=== PATIENT | female | born 1950 | race Caucasian/White ===

== ENCOUNTER 2016-06-05 13:24 | Outpatient (RCR) | payer BC ==
[~2016-06-05 13:24] MED LIST: ASP81TEC PO; FURO20TA4 PO; GBPN300C PO; INSU100I14 SQ; LEVE1U SQ; LVT.1T PO; METO-272 PO; NIFE90TA4 PO; OMEP20TA2 PO; ONDA8TAB13 PO; TRAM50TA2 PO; TRM50T PO; [UNRECOGNIZED DRUG - OTHER]
--- OUTSIDE RECORDS SUMMARY | 2016-06-05 13:27 | XMS REPORT | Continuity of Care Document ---
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 Medications Medication Dose Route Sig Days/Qty Instructions Order Date Discontinued Date Status Metoprolol Succinate 100 Mg PO DAILY 05/14/11 Active Nifedipine 60 Mg PO DAILY 05/14/11 Active Levothyroxine Sodium (Levothroid) 100 Mg PO DAILY 05/14/11 Active Aspirin 81 Mg PO DAILY 05/14/11 Active Omeprazole 20 Mg PO DAILY 06/19/11 04/23/13 Discontinued Ondansetron 8 Mg PO EVERY 8HRS PRN 06/19/11 04/23/13 Discontinued [Detamethason] DIRECTED -TAKES BEFORE CHEMO- 06/19/11 08/14/11 Discontinued Insulin Detemir 24 Units SQ BEDTIME 06/19/11 04/23/13 Discontinued Gabapentin 300 Mg PO BEDTIME 08/14/11 04/23/13 Discontinued Furosemide (Lasix) 1 Each PO DAILY PRN 08/14/11 04/23/13 Discontinued Insulin Aspart 11 Units SQ WITH MEALS 08/14/11 04/23/13 Discontinued Tramadol Hcl 50 - 100 Mg PO EVERY 4HRS PRN 30 Qty 08/23/11 04/23/13 Discontinued Social History Social History Problem Response Recorded Date/Time Recent Foreign Travel No 03/01/2014 2:07pm Hospital Discharge Instructions No hospital discharge instructions. Plan of Care No plan of care. Functional Status No functional status results. Allergies, Adverse Reactions, Alerts Allergen Type Severity Reaction Status Last Updated Shellfish Allergy SWELLING, RASH Active 05/14/11 iodine ([id number]) Allergy SWELLING, SOB Active 05/14/11 Codeine Allergy SEIZURE Active 05/14/11 meperidine Allergy HALLUCINATION Active 04/23/13 [place] ([id number]) Allergy RASH, SWELLING Active 05/14/11 Immunizations Name Given Type Date of Influenza Vaccine 02/03/13 Historical Vital Signs No known vital signs results. Results Test Source Date Result Interp. Ref. Range Comments Activated Partial Thromboplast Time June 20, 2011 1:25am 147 SEC PH 24-35 RESULTS CALLED TO SLOVEN[place] AT 0143. RESULTS READ BACK:YES. Alanine Aminotransferase (ALT/SGPT) September 17, 2013 11:23am 27 U/L L 30-65 Albumin September 17, 2013 11:23am 3.9 G/DL N 3.4-5.0 Alkaline Phosphatase September 17, 2013 11:23am 109 U/L N 50-136 Faustino Test June 19, 2011 2:45pm YES-POS - Puncture site: RIGHT RADIALAllen's Test: POSITIVE Temperature: 97.8 Room Air: Y Liters of O2: 0 Ventilator: N Arterial Blood Base Excess June 19, 2011 2:45pm -1.1 MMOL/L N -2.5- 2.5 Puncture site: RIGHT RADIALAllen's Test: POSITIVE Temperature: 97.8 Room Air: Y Liters of O2: 0 Ventilator: N Arterial Blood HCO3 June 19, 2011 2:45pm 22 MMOL/L L 23-27 Puncture site: RIGHT RADIALAllen's Test: POSITIVE Temperature: 97.8 Room Air: Y Liters of O2: 0 Ventilator: N Arterial Blood Oxygen Saturation June 19, 2011 2:45pm 98 % N 94-100 Puncture site: RIGHT RADIALAllen's Test: POSITIVE Temperature: 97.8 Room Air: Y Liters of O2: 0 Ventilator: N Arterial Blood Partial Pressure CO2 June 19, 2011 2:45pm 32 MMHG L 35-45 Puncture site: RIGHT RADIALAllen's Test: POSITIVE Temperature: 97.8 Room Air: Y Liters of O2: 0 Ventilator: N Arterial Blood Partial Pressure O2 June 19, 2011 2:45pm 104 MMHG H 79-93 Puncture site: RIGHT RADIALAllen's Test: POSITIVE Temperature: 97.8 Room Air: Y Liters of O2: 0 Ventilator: N Arterial Blood Total CO2 June 19, 2011 2:45pm 23.3 MMOL/L N 21.0- 31.0 Puncture site: RIGHT RADIALAllen's Test: POSITIVE Temperature: 97.8 Room Air: Y Liters of O2: 0 Ventilator: N Arterial Blood pH June 19, 2011 2:45pm 7.46 H 7.37-7.43 Puncture site: RIGHT RADIALAllen's Test: POSITIVE Temperature: 97.8 Room Air: Y Liters of O2: 0 Ventilator: N Aspartate Amino Transf (AST/SGOT) September 17, 2013 11:23am 13 U/L L 15-37 BUN/Creatinine Ratio September 17, 2013 11:23am 13 - Basophils # (Auto) September 17, 2013 11:23am 0.1 10^3/uL N 0.0-0.1 Basophils (%) (Auto) September 17, 2013 11:23am 1 % N 0-10 Blood Gas Inspired Oxygen June 19, 2011 2:45pm 0 - Puncture site : RIGHT RADIALAllen's Test: POSITIVE Temperature: 97.8 Room Air: Y Liters of O2: 0 Ventilator: N Blood Gas Patient Temperature June 19, 2011 2:45pm 97.8 - Puncture site: RIGHT RADIALAllen's Test: POSITIVE Temperature: 97.8 Room Air: Y Liters of O2: 0 Ventilator: N Blood Gas Puncture Site June 19, 2011 2:45pm RT RADIAL - Puncture site: RIGHT RADIALAllen's Test: POSITIVE Temperature: 97.8 Room Air: Y Liters of O2: 0 Ventilator: N Blood Gas Ventilator Setting June 19, 2011 2:45pm NO - Puncture site: RIGHT RADIALAllen's Test: POSITIVE Temperature: 97.8 Room Air: Y Liters of O2: 0 Ventilator: N Blood Urea Nitrogen September 17, 2013 11:23am 12 MG/DL N 7-18 CA 27.29 May 29, 2011 11:40am 31.6 U/ML - Calcium Level September 17, 2013 11:23am 8.9 MG/DL N 8.5-10.1 Carbon Dioxide Level September 17, 2013 11:23am 27 MMOL/L N 21-32 Chloride Level September 17, 2013 11:23am 103 MMOL/L N 101-110 Creatinine September 17, 2013 11:23am 0.9 MG/DL N 0.6-1.3 D-Dimer June 19, 2011 10:27am 0.76 UG/ML H 0.00-0.49 Comments to Rn Gastroenterology: USE BLOOD IN LAB IF ABLE Eosinophils # (Auto) September 17, 2013 11:23am 0.7 10^3/uL H 0.0-0.3 Eosinophils (%) (Auto) September 17, 2013 11:23am 9 % N 0-10 Erythrocyte Sedimentation Rate June 19, 2011 10:27am 17 MM/HR N 0- 30 Comments to Rn Gastroenterology: PT HAS A PORT Glucose Level September 17, 2013 11:23am 176 MG/DL H 74-106 Hematocrit September 17, 2013 11:23am 37 % N 35-52 Hemoglobin September 17, 2013 11:23am 13.1 G/DL N 11.5-16.0 Hemoglobin A1c April 01, 2012 2:50pm 7.9 % H 4.5-6.2 Lymphocytes # (Auto) September 17, 2013 11:23am 1.7 X 10^3 N 1.0-4.0 Lymphocytes (%) (Auto) September 17, 2013 11:23am 23 % N 12-44 Mean Corpuscular Hemoglobin September 17, 2013 11:23am 28 PG N 25-34 Mean Corpuscular Hemoglobin Concent September 17, 2013 11:23am 35 G/DL N 32- 36 Mean Corpuscular Volume September 17, 2013 11:23am 80 FL N 80-99 Mean Platelet Volume September 17, 2013 11:23am 9.6 FL N 7.4-10.4 Monocytes # (Auto) September 17, 2013 11:23am 0.6 X 10^3 N 0.0-1.0 Monocytes (%) (Auto) September 17, 2013 11:23am 8 % N 0-12 Neutrophils # (Auto) September 17, 2013 11:23am 4.6 X 10^3 N 1.8-7.8 Neutrophils (%) (Auto) September 17, 2013 11:23am 60 % N 42-75 Platelet Count September 17, 2013 11:23am 354 10^3/uL N 130-400 Potassium Level September 17, 2013 11:23am 4.6 MMOL/L N 3.6-5.0 Prothromb Time International Ratio June 19, 2011 10:27am 0.8 N 0.8- 1.4 INTERPRETIVE DATASUGGESTED THERAPEUTIC RANGE FOR INR'S : VENOUS THROMBOSIS, PULMONARY EMBOLISM, OR PREVENTION OF SYSTEMIC EMBOLISM (EG. IN ATRIAL FIBRILLATION): 2.0 - 3.0 MECHANICAL PROSTHETIC HEART VALVES: 2.5 - 3.5* *NOTE: INR'S UP TO 4.5 MAY BE NECESSARY IN SELECTED GROUPS OF HIGH RISK PATIENTS. [employer] [place] COL[employer] OF CHEST PHYSICIANS CONSENSUS CONFERENCE ON ANTITHROMBOTIC THERAPY (2000). Prothrombin Time June 19, 2011 10:27am 11.8 SEC L 12.2-14.7 Comments to Rn Gastroenterology: PT HAS A PORT Red Blood Count September 17, 2013 11:23am 4.65 10^6/uL N 4.35-5.85 Red Cell Distribution Width September 17, 2013 11:23am 13.4 % N 10.0-14.5 Sodium Level September 17, 2013 11:23am 139 MMOL/L N 135-145 Thyroid Stimulating Hormone (TSH) April 01, 2012 2:50pm 0.45 UIU/ML N 0.34-5.60 PRINT TO CCRPT5 Total Bilirubin September 17, 2013 11:23am 0.5 MG/DL N 0.0-1.0 Total Protein September 17, 2013 11:23am 7.9 G/DL N 6.4-8.2 Troponin I June 19, 2011 10:10pm < 0.10 MG/ML 0.00-0.10 White Blood Count September 17, 2013 11:23am 7.6 10^3/uL N 4.3-11.0 Glucometer April 30, 2013 7:50am 229 MG/DL H 70-110 Lab Scanned Report June 19, 2011 9:20am LAB Reports [id number] - Estimat Glomerular Filtration Rate September 17, 2013 11:23am > 60 - GFR INTERPRETIVE DATA UNITS FOR ESTIMATED GFR (eGFR): mL/min/1.73 M2 REFERENCE RANGE FOR ESTIMATED GFR (eGFR) eGFR NORMAL eGFR >60 MODERATELY DECREASED eGFR 30-59 SEVERLY DECREASED eGFR 15-29 KIDNEY FAILURE <15 (OR DIALYSIS) Creatine Kinase June 19, 2011 10:10pm 27 U/L N 1-159 Cardiac Panel Pathologist Review June 19, 2011 10:27am SEE CARDIAC PATH REV - Comments to Rn Gastroenterology: PT HAS A PORT MRSA Screen Nasal April 23, 2013 2:30pm MRSA not isolated Procedures No known history of procedures. Encounters Encounter Location Date/Time Registered Clinic [facility] 03/02/14 2:40pm Discharged Recurring [facility] 12/22/13 10:47am
[2016-06-05 13:42] LABS: BASOPHILS % (AUTO) 1 % (0-10); EOSINOPHILS # (AUTO) 0.2 10^3/uL (0.0-0.3); EOSINOPHILS % (AUTO) 4 % (0-10); LYMPHOCYTES # (AUTO) 1.9 X 10^3 (1.0-4.0); LYMPHOCYTES % (AUTO) 31 % (12-44); MEAN CORPUSCULAR HEMOGLOBIN 28 PG (25-34); MEAN CORPUSCULAR HGB CONC 35 G/DL (32-36); MEAN CORPUSCULAR VOLUME 81 FL (80-99); MEAN PLATELET VOLUME 9.7 FL (7.4-10.4); MONOCYTES # (AUTO) 0.5 X 10^3 (0.0-1.0); MONOCYTES % (AUTO) 8 % (0-12); NEUTROPHILS # (AUTO) 3.4 X 10^3 (1.8-7.8); NEUTROPHILS % (AUTO) 56 % (42-75); PLATELET COUNT 289 10^3/uL (130-400); RED BLOOD COUNT 4.38 10^6/uL (4.35-5.85); RED CELL DISTRIBUTION WIDTH 13.1 % (10.0-14.5); WHITE BLOOD COUNT 6.1 10^3/uL (4.3-11.0)
[2016-06-05 14:08] LABS: BILIRUBIN,TOTAL 0.5 MG/DL (0.1-1.0); CALCIUM 8.9 MG/DL (8.5-10.1); CREATININE SERUM 1.16 MG/DL (0.60-1.30); POTASSIUM 4.5 MMOL/L (3.6-5.0); TOTAL PROTEIN 6.9 G/DL (6.4-8.2)
== END 2016-09-03 | disposition home or self-care (01) ==
LOC: ONC 13:24
PROVIDERS: ATTEND Internal Medicine Hematology & Oncology
DX: C50.411 Malignant neoplasm of upper-outer quadrant of right female breast (principal); E11.9 Type 2 diabetes mellitus without complications; I10 Essential (primary) hypertension; E03.9 Hypothyroidism, unspecified; Z90.79 Acquired absence of other genital organ(s); Z79.899 Other long term (current) drug therapy; Z17.0 Estrogen receptor positive status [ER+]
CPT/HCPCS: 36415; 80053; 85025

== ENCOUNTER → 2016-06-12 | Outpatient (CLI) | payer BC ==
--- OUTSIDE RECORDS SUMMARY | 2016-06-12 13:55 | XMS REPORT | Continuity of Care Document ---
Author Author [facility] Organization [facility] Address Unknown Phone Unavailable Care Team Providers Care Student Support Advisor Name Role Phone ANG QUIROS PCP Insurance Providers Payer Name Policy Number Subscriber Name Relationship [facility] [id number] Andrew Olguin 18 Self / Same As Patient Advance Directives Directive Response Recorded Date/Time Advance Directives Yes 04/30/13 8:19am Health Care Power of [employer] Press Operator Automatic No 04/30/13 8:19am Organ Donor No 04/30/13 [...] Shellfish Allergy SWELLING, RASH Active 05/14/11 iodine ([id number]) Allergy SWELLING, SOB Active 05/14/11 Codeine Allergy SEIZURE Active 05/14/11 meperidine Allergy HALLUCINATION Active 04/23/13 [place] ([id number]) Allergy RASH, SWELLING Active 05/14/11 Immunizations Name Given Type Date of Influenza Vaccine 02/03/13 Historical Vital Signs No known vital signs results. Results Test Source Date Result Interp. Ref. Range Comments Activated Partial Thromboplast Time June 20, 2011 1:25am 147 SEC PH 24-35 RESULTS CALLED TO [place] AT 0143. RESULTS READ BACK:YES. Alanine Aminotransferase [...] 10:27am 0.76 UG/ML H 0.00-0.49 Comments to Vineyard Supervisor: USE BLOOD IN LAB IF ABLE Eosinophils # (Auto) September 17, 2013 11:23am 0.7 10^3/uL H 0.0-0.3 Eosinophils (%) (Auto) September 17, 2013 11:23am 9 % N 0-10 Erythrocyte Sedimentation Rate June 19, 2011 10:27am 17 MM/HR N 0- 30 Comments to Vineyard Supervisor: PT HAS A PORT Glucose Level September [...] SELECTED GROUPS OF HIGH RISK PATIENTS. [employer] [place] [employer] OF CHEST PHYSICIANS CONSENSUS CONFERENCE ON ANTITHROMBOTIC THERAPY (2000). Prothrombin Time June 19, 2011 10:27am 11.8 SEC L 12.2-14.7 Comments to Vineyard Supervisor: PT HAS A PORT Red Blood Count [...] Report June 19, 2011 9:20am LAB Reports [id number] - Estimat Glomerular Filtration Rate September 17, [...] SEE CARDIAC PATH REV - Comments to Vineyard Supervisor: PT HAS A PORT MRSA Screen Nasal April 23, 2013 2:30pm MRSA not isolated Procedures No known history of procedures. Encounters Encounter Location Date/Time Registered Clinic [facility] 03/02/14 2:40pm Discharged Recurring [facility] 12/22/13 10:47am
== END ==
LOC: FS 13:52
PROVIDERS: ATTEND Internal Medicine Hematology & Oncology
DX: C50.411 Malignant neoplasm of upper-outer quadrant of right female breast (principal); E11.9 Type 2 diabetes mellitus without complications; I10 Essential (primary) hypertension; E03.9 Hypothyroidism, unspecified; Z90.79 Acquired absence of other genital organ(s); Z79.899 Other long term (current) drug therapy; Z17.0 Estrogen receptor positive status [ER+]
CPT/HCPCS: 99213

== ENCOUNTER 2016-09-28 09:26 | Outpatient (RCR) | payer BC ==
[2016-09-28 10:04] LABS: BASOPHILS # (AUTO) 0.1 10^3/uL (0.0-0.1); BASOPHILS % (AUTO) 1 % (0-10); EOSINOPHILS # (AUTO) 0.3 10^3/uL (0.0-0.3); EOSINOPHILS % (AUTO) 5 % (0-10); LYMPHOCYTES # (AUTO) 1.6 X 10^3 (1.0-4.0); LYMPHOCYTES % (AUTO) 26 % (12-44); MEAN CORPUSCULAR HEMOGLOBIN 28 PG (25-34); MEAN CORPUSCULAR HGB CONC 34 G/DL (32-36); MEAN CORPUSCULAR VOLUME 81 FL (80-99); MONOCYTES # (AUTO) 0.5 X 10^3 (0.0-1.0); MONOCYTES % (AUTO) 8 % (0-12); NEUTROPHILS # (AUTO) 3.7 X 10^3 (1.8-7.8); NEUTROPHILS % (AUTO) 60 % (42-75); PLATELET COUNT 301 10^3/uL (130-400); RED BLOOD COUNT 4.85 10^6/uL (4.35-5.85); RED CELL DISTRIBUTION WIDTH 12.7 % (10.0-14.5); WHITE BLOOD COUNT 6.3 10^3/uL (4.3-11.0)
[2016-09-28 10:26] LABS: ALBUMIN 4.2 G/DL (3.2-4.5); BILIRUBIN,TOTAL 0.4 MG/DL (0.1-1.0); CALCIUM 9.7 MG/DL (8.5-10.1); CREATININE SERUM 1.2 MG/DL (0.60-1.30); POTASSIUM 4.4 MMOL/L (3.6-5.0); TOTAL PROTEIN 8.2 G/DL (6.4-8.2)
== END 2016-12-27 | disposition home or self-care (01) ==
LOC: ONC 09:26
PROVIDERS: ATTEND Internal Medicine Hematology & Oncology
DX: C50.411 Malignant neoplasm of upper-outer quadrant of right female breast (principal); E11.9 Type 2 diabetes mellitus without complications; I10 Essential (primary) hypertension; E03.9 Hypothyroidism, unspecified; Z90.79 Acquired absence of other genital organ(s); Z79.899 Other long term (current) drug therapy; Z17.0 Estrogen receptor positive status [ER+]
CPT/HCPCS: 36415; 80053; 85025

== ENCOUNTER → 2016-09-28 | Outpatient (CLI) | payer BC ==
--- NOTE | 2016-09-28 16:18 | Diagnostic Imaging Report ---
EXAMINATION: Bilateral diagnostic mammogram with a Computer Aided Detection (CAD) system. INDICATION: History of right breast cancer. FINDINGS: Again seen are postsurgical changes in the upper aspect of the right breast with scarring and stable mass, compatible with a chronic seroma. The left breast heterogeneously dense parenchyma is not significantly changed with benign-appearing calcifications seen. Allowing for technique and positional differences, no suspicious change is seen. IMPRESSION: No significant change. ACR BI-RADS Category 2: Benign findings. Result letter will be mailed to the patient. Note: At least 10% of breast cancer is not imaged by mammography. Dictated by: Dictated on workstation # [id number]
== END ==
LOC: RAD 08:46
PROVIDERS: ATTEND Internal Medicine Hematology & Oncology
DX: Z85.3 Personal history of malignant neoplasm of breast (principal); Z98.890 Other specified postprocedural states
CPT/HCPCS: 77066

== ENCOUNTER → 2016-10-09 | Outpatient (CLI) | payer BC | LOC: FS 11:20 | PROVIDERS: ATTEND Internal Medicine Hematology & Oncology | DX: Z08 Encounter for follow-up examination after completed treatment for malignant neoplasm (principal); Z85.3 Personal history of malignant neoplasm of breast; E11.40 Type 2 diabetes mellitus with diabetic neuropathy, unspecified; I10 Essential (primary) hypertension; E03.9 Hypothyroidism, unspecified; Z90.79 Acquired absence of other genital organ(s); Z79.899 Other long term (current) drug therapy; Z92.21 Personal history of antineoplastic chemotherapy; Z92.3 Personal history of irradiation | CPT/HCPCS: 99213 ==

== ENCOUNTER → 2017-10-07 | Outpatient (CLI) | payer BC ==
--- NOTE | 2017-10-07 20:05 | Diagnostic Imaging Report ---
INDICATION: History of breast cancer. COMPARISON: Comparison made with prior examinations from 09/28/2016 back through 05/09/2011. The current study was also evaluated with a Computer Aided Detection (CAD) system. FINDINGS: There is heterogeneously dense fibroglandular tissue on the left. There are postsurgical changes of a right mastectomy. There are a few scattered benign-type calcifications. There is no new dominant mass, spiculated lesion, or suspicious calcification identified. IMPRESSION: Benign. Stable postsurgical changes in the right breast. Scattered benign-type calcifications. ACR BI-RADS Category 2: Benign findings. Result letter will be mailed to the patient. Note: At least 10% of breast cancer is not imaged by mammography. Dictated by: Dictated on workstation # [id number]
== END ==
LOC: RAD 09:24
PROVIDERS: ATTEND Internal Medicine Hematology & Oncology
DX: Z12.31 Encounter for screening mammogram for malignant neoplasm of breast (principal); Z85.3 Personal history of malignant neoplasm of breast; Z98.890 Other specified postprocedural states
CPT/HCPCS: 77067

== ENCOUNTER 2017-10-15 09:55 | Outpatient (RCR) | payer BC ==
[2017-10-07 09:31] LABS: BASOPHILS # (AUTO) 0.1 10^3/uL (0.0-0.1); BASOPHILS % (AUTO) 1 % (0-10); EOSINOPHILS # (AUTO) 0.4 10^3/uL (0.0-0.3); EOSINOPHILS % (AUTO) 6 % (0-10); HEMATOCRIT 32 % (35-52); HEMOGLOBIN 11.1 G/DL (11.5-16.0); LYMPHOCYTES # (AUTO) 1.4 X 10^3 (1.0-4.0); LYMPHOCYTES % (AUTO) 25 % (12-44); MEAN CORPUSCULAR HEMOGLOBIN 29 PG (25-34); MEAN CORPUSCULAR HGB CONC 35 G/DL (32-36); MEAN CORPUSCULAR VOLUME 84 FL (80-99); MEAN PLATELET VOLUME 10.2 FL (7.4-10.4); MONOCYTES # (AUTO) 0.4 X 10^3 (0.0-1.0); MONOCYTES % (AUTO) 8 % (0-12); NEUTROPHILS # (AUTO) 3.4 X 10^3 (1.8-7.8); NEUTROPHILS % (AUTO) 60 % (42-75); PLATELET COUNT 284 10^3/uL (130-400); RED BLOOD COUNT 3.81 10^6/uL (4.35-5.85); RED CELL DISTRIBUTION WIDTH 12.8 % (10.0-14.5); WHITE BLOOD COUNT 5.7 10^3/uL (4.3-11.0)
[2017-10-07 09:52] LABS: ALBUMIN 4.1 GM/DL (3.2-4.5); BILIRUBIN,TOTAL 0.5 MG/DL (0.1-1.0); CALCIUM 9.2 MG/DL (8.5-10.1); CREATININE SERUM 1.49 MG/DL (0.60-1.30); POTASSIUM 4.1 MMOL/L (3.6-5.0); TOTAL PROTEIN 7.5 GM/DL (6.4-8.2)
== END 2018-01-05 | disposition home or self-care (01) ==
LOC: ONC 09:55
PROVIDERS: ATTEND Internal Medicine Hematology & Oncology
DX: Z08 Encounter for follow-up examination after completed treatment for malignant neoplasm (principal); Z85.3 Personal history of malignant neoplasm of breast; E11.40 Type 2 diabetes mellitus with diabetic neuropathy, unspecified; I10 Essential (primary) hypertension; E03.9 Hypothyroidism, unspecified; Z90.79 Acquired absence of other genital organ(s); Z79.899 Other long term (current) drug therapy; Z92.21 Personal history of antineoplastic chemotherapy; Z92.3 Personal history of irradiation
CPT/HCPCS: 36415; 80053; 85025; 99213

== ENCOUNTER → 2019-02-03 | Outpatient (CLI) | payer BC, MEDICARE ==
--- NOTE | 2019-02-03 18:37 | Diagnostic Imaging Report ---
EXAMINATION: Digital mammogram bilateral screening. The current study was also evaluated with a Computer Aided Detection (CAD) system. 3-D tomosynthesis was also performed and reviewed. INDICATION: Screening. This study was compared to the prior exams of 10/07/2017, 09/28/2016, and 09/26/2015. At this time, there are no current complaints. FINDINGS: As noted on the prior exams, there are postsurgical changes involving the right breast. There is no evidence for recurrent malignancy involving the right breast. The fibroglandular tissue in the left breast is heterogeneously dense. This does limit the sensitivity of this exam. Overall, there does not appear to have been any significant change. There is no primary or secondary sign of malignancy noted. IMPRESSION: There is no evidence for malignancy. ACR BI-RADS Category 1: Negative. Result letter will be mailed to the patient. Note: At least 10% of breast cancer is not imaged by mammography. Dictated by: Dictated on workstation # [id number]
== END ==
LOC: RAD 08:36
PROVIDERS: ATTEND Internal Medicine Hematology & Oncology
DX: Z12.31 Encounter for screening mammogram for malignant neoplasm of breast (principal); Z85.3 Personal history of malignant neoplasm of breast; Z98.890 Other specified postprocedural states
CPT/HCPCS: 77067

== ENCOUNTER 2019-02-10 14:13 | Outpatient (RCR) | payer BC ==
[2019-02-03 09:19] LABS: BASOPHILS # (AUTO) 0.1 10^3/uL (0.0-0.1); BASOPHILS % (AUTO) 1 % (0-10); EOSINOPHILS # (AUTO) 0.4 10^3/uL (0.0-0.3); EOSINOPHILS % (AUTO) 6 % (0-10); HEMATOCRIT 36 % (35-52); HEMOGLOBIN 12.5 G/DL (11.5-16.0); LYMPHOCYTES # (AUTO) 1.8 X 10^3 (1.0-4.0); LYMPHOCYTES % (AUTO) 26 % (12-44); MEAN CORPUSCULAR HEMOGLOBIN 28 PG (25-34); MEAN CORPUSCULAR HGB CONC 34 G/DL (32-36); MEAN CORPUSCULAR VOLUME 82 FL (80-99); MEAN PLATELET VOLUME 10.2 FL (7.4-10.4); MONOCYTES # (AUTO) 0.5 X 10^3 (0.0-1.0); MONOCYTES % (AUTO) 7 % (0-12); NEUTROPHILS # (AUTO) 4.1 X 10^3 (1.8-7.8); NEUTROPHILS % (AUTO) 60 % (42-75); PLATELET COUNT 316 10^3/uL (130-400); RED CELL DISTRIBUTION WIDTH 12.7 % (10.0-14.5); WHITE BLOOD COUNT 6.8 10^3/uL (4.3-11.0)
[2019-02-03 09:44] LABS: ALBUMIN 4.2 GM/DL (3.2-4.5); BILIRUBIN,TOTAL 0.5 MG/DL (0.1-1.0); CALCIUM 9.5 MG/DL (8.5-10.1); CREATININE SERUM 1.62 MG/DL (0.60-1.30); POTASSIUM 4.4 MMOL/L (3.6-5.0); TOTAL PROTEIN 7.7 GM/DL (6.4-8.2)
== END 2019-05-04 | disposition home or self-care (01) ==
LOC: ONC 14:13
PROVIDERS: ATTEND Internal Medicine Hematology & Oncology
DX: Z08 Encounter for follow-up examination after completed treatment for malignant neoplasm (principal); Z85.3 Personal history of malignant neoplasm of breast; E11.40 Type 2 diabetes mellitus with diabetic neuropathy, unspecified; I10 Essential (primary) hypertension; E03.9 Hypothyroidism, unspecified; Z90.79 Acquired absence of other genital organ(s); Z79.899 Other long term (current) drug therapy; Z92.21 Personal history of antineoplastic chemotherapy; Z92.3 Personal history of irradiation
CPT/HCPCS: 36415; 80053; 85025; 99213

== ENCOUNTER → 2019-06-04 | Outpatient (CLI) | payer BC, MEDICARE ==
--- NOTE | 2019-06-05 12:04 | Diagnostic Imaging Report ---
Exam: MRI right foot without contrast. Date: June 04, 2019. Indication: 68-year-old female, felt pop in mid foot. Lump. Comparison: None. Technique: Multiple noncontrast MRI sequences of the right foot were obtained. Findings: The Lisfranc ligament proper is intact. The imaged portions of the peroneal tendons, the posterior flexor tendons, and anterior extensor tendons are intact. The visualized portions of the plantar fascia are without tear. There is thickening of the plantar fascia. This study does not evaluate well for plantar fasciitis as there is no fluid sensitive sequence including the calcaneal attachment site of the plantar fascia. There is no acute fracture, stress reaction, or evidence of osteonecrosis. There is mild arthritis of the first metatarsophalangeal joint. There is no joint effusion. There is no bone erosion. There is mild generalized fatty atrophy of the foot musculature with intramuscular edema. This potentially may reflect polyneuropathy. Recommend correlation. Impression: 1. Intact Lisfranc ligament proper. 2. Intact visualized tendons. 3. Thickening of the plantar fascia near its calcaneal attachment site. Limited assessment for plantar fasciitis given lack of fluid sensitive sequence at the level of the calcaneus which is not in the field of view of imaging on standard MRI foot protocol. Correlation clinically may be helpful. 4. Mild osteoarthritis of the first metatarsophalangeal joint. 5. Mild fatty atrophy diffusely involving the foot musculature with intramuscular edema which may reflect polyneuropathy. Recommend correlation. Dictated by: Dictated on workstation # [id number]
== END ==
LOC: RAD 15:40
PROVIDERS: ATTEND Nurse Practitioner Family
DX: M19.071 Primary osteoarthritis, right ankle and foot (principal)

== ENCOUNTER → 2020-05-17 | Outpatient (CLI) | payer BC, MEDICARE ==
--- NOTE | 2020-05-17 13:59 | Diagnostic Imaging Report ---
EXAMINATION: Digital mammogram bilateral screening with CAD. INDICATION: Screening. COMPARISON: This study was compared to the prior exams of 02/03/2019, 10/07/2017, and 09/28/2016. PERSONAL HISTORY: At this time, there are no current complaints. FINDINGS: The post surgical changes involving the right breast seen previously are again evident and no different. The fibroglandular tissue in both breasts is heterogeneously dense which does limit the sensitivity of this exam. Overall, there does not appear to have been any significant change when compared to the prior study. There is no primary or secondary sign of malignancy noted. IMPRESSION: There is no evidence for malignancy. ACR BI-RADS Category 1: Negative. Result letter will be mailed to the patient. Note: At least 10% of breast cancer is not imaged by mammography. Dictated by: Dictated on workstation # [id number]
== END ==
LOC: RAD 10:43
PROVIDERS: ATTEND Internal Medicine Hematology & Oncology
DX: Z12.31 Encounter for screening mammogram for malignant neoplasm of breast (principal); Z85.3 Personal history of malignant neoplasm of breast; Z98.890 Other specified postprocedural states
CPT/HCPCS: 77063; 77067; 99213

== ENCOUNTER → 2020-05-17 | Outpatient (CLI) | payer BC, MEDICARE ==
[2020-05-17 10:13] LABS: BASOPHILS # (AUTO) 0.1 10^3/uL (0.0-0.1); BASOPHILS % (AUTO) 2 % (0-10); EOSINOPHILS # (AUTO) 0.4 10^3/uL (0.0-0.3); EOSINOPHILS % (AUTO) 7 % (0-10); HEMATOCRIT 38 % (35-52); HEMOGLOBIN 12.8 g/dL (11.5-16.0); LYMPHOCYTES # (AUTO) 1.8 10^3/uL (1.0-4.0); LYMPHOCYTES % (AUTO) 27 % (12-44); MEAN CORPUSCULAR HEMOGLOBIN 29 pg (25-34); MEAN CORPUSCULAR HGB CONC 33 g/dL (32-36); MEAN CORPUSCULAR VOLUME 87 fL (80-99); MEAN PLATELET VOLUME 9.9 fL (9.0-12.2); MONOCYTES # (AUTO) 0.5 10^3/uL (0.0-1.0); MONOCYTES % (AUTO) 7 % (0-12); NEUTROPHILS # (AUTO) 3.9 10^3/uL (1.8-7.8); NEUTROPHILS % (AUTO) 58 % (42-75); PLATELET COUNT 331 10^3/uL (130-400); WHITE BLOOD COUNT 6.8 10^3/uL (4.3-11.0)
[2020-05-17 10:44] LABS: ALBUMIN 4.1 GM/DL (3.2-4.5); BILIRUBIN,TOTAL 0.4 MG/DL (0.1-1.0); CALCIUM 9.2 MG/DL (8.5-10.1); CREATININE SERUM 1.54 MG/DL (0.60-1.30); MAGNESIUM 2.2 MG/DL (1.6-2.4); POTASSIUM 4.1 MMOL/L (3.6-5.0); TOTAL PROTEIN 7.7 GM/DL (6.4-8.2)
== END ==
LOC: EDSTATUS 05-05 08:43 → ONC 10:06
PROVIDERS: ATTEND Internal Medicine Hematology & Oncology
DX: C50.911 Malignant neoplasm of unspecified site of right female breast (principal); I12.9 Hypertensive chronic kidney disease with stage 1 through stage 4 chronic kidney disease, or unspecified chronic kidney disease; E11.22 Type 2 diabetes mellitus with diabetic chronic kidney disease; N18.4 Chronic kidney disease, stage 4 (severe); E03.9 Hypothyroidism, unspecified; Z90.11 Acquired absence of right breast and nipple; Z92.21 Personal history of antineoplastic chemotherapy; Z92.3 Personal history of irradiation; Z98.890 Other specified postprocedural states
CPT/HCPCS: 80053; 83735; 85025

== ENCOUNTER 2022-08-31 17:15 | Emergency (ER) | payer MEDICARE, OTHER ==
--- NOTE | 2022-08-31 17:34 | ED Upper Extremity ---
General Chief Complaint: Upper Extremity Stated Complaint: FALL,R ARM PAIN Source: patient, family Exam Limitations: no limitations History of Present Illness Date Seen by Provider: Aug 31, 2022 Time Seen by Provider: 17:19 Initial Comments 71-year-old female with no pertinent past medical history coming in after her passed out and she tried to catch him. He landed on her right shoulder now causing pain in that area. The pain is worse with movement, mild to moderate, better with rest. She says she has carpal tunnel so has always dealt with some numbness in her fingers which is still present. No significant changes to this. Otherwise denies any other acute complaints. Did not hit her head or pass out, no neck pain or back pain. Allergies and Home Medications Allergies Coded Allergies: Shellfish (Unverified Allergy, Unknown, SWELLING, RASH, 05/17/20) codeine (Unverified Allergy, Unknown, SEIZURE, 05/17/20) iodine (Unverified Allergy, Unknown, SWELLING, SOB, 05/17/20) meperidine (Unverified Allergy, Unknown, HALLUCINATION, 05/17/20) strawberry (Unverified Allergy, Unknown, RASH, SWELLING, 05/17/20) Patient Home Medication List Home Medication List Reviewed: Yes Aspirin (Aspirin Ec 81 Mg) 81 Mg Tabec, 81 MG PO DAILY, (Reported) Entered as Reported by: JASPER TUCKER on 05/14/11 1352 Levothyroxine Sodium (Levothyroxine 100 Mcg Tab) 100 Mcg Tablet, 100 MG PO DAILY, (Reported) Entered as Reported by: JASPER TUCKER on 05/14/11 1344 Metoprolol Succinate (Metoprolol Succinate) 50 Mg Tab.sr.24h, 100 MG PO DAILY, (Reported) Entered as Reported by: JASPER TUCKER on 05/14/11 1344 Nifedipine (Nifediac Cc) 90 Mg Tablet.sa, 60 MG PO DAILY, (Reported) Entered as Reported by: JASPER TUCKER on 05/14/11 1344 Review of Systems Constitutional: No fever EENTM: no symptoms reported Respiratory: no symptoms reported Cardiovascular: no symptoms reported Gastrointestinal: no symptoms reported Genitourinary: no symptoms reported Musculoskeletal: see HPI Skin: no symptoms reported Psychiatric/Neurological: See HPI Past [id number] Hx Patient Social History Substance use?: No Seasonal Allergies Seasonal Allergies: No Past Medical History Surgery/Hospitalization HX: Carpal tunnel surgery, lumpectomy on the right breast, cataract Appendectomy Reproductive Disorders: No Physical Exam Vital Signs Vital Signs - First Documented 08/31/22 17:20 Temp 36.2 Pulse 88 Resp 16 B/P (MAP) 139/63 (88) Pulse Ox 98 O2 Delivery Room Air Capillary Refill : Height, Weight, BMI Height: '" Weight: 154lbs. oz. 69.384557gm; BMI Method: General Appearance: WD/WN, no apparent distress HEENT: PERRL/EOMI, normal ENT inspection, pharynx normal Neck: non-tender, full range of motion, supple, normal inspection Cardiovascular: regular rate, rhythm, no edema, no murmur Respiratory: chest non-tender, lungs clear, normal breath sounds, no respiratory distress, no accessory muscle use Gastrointestinal: normal bowel sounds, non tender, soft Back: normal inspection, no CVA tenderness, no vertebral tenderness Shoulder: normal inspection, non-tender, no evidence of injury, limited ROM (due to pain, normal neurovascular exam distal to the injury) Elbow/Forearm: normal inspection, non-tender, no evidence of injury, normal ROM Wrist: Yes normal inspection, Yes non-tender, Yes no evidence of injury, Yes normal ROM Neurologic/Tendon: normal sensation, normal motor functions Neurologic/Psychiatric: no motor/sensory deficits, alert, normal mood/affect Skin: normal color, warm/dry Progress/Results/Core Measures Results/Orders My Orders Orders - MARIA DEL ROSARIO DEXTER MD Shoulder 3 View Right (08/31/22 17:31) Acetaminophen Tablet (Tylenol Tablet) (08/31/22 17:45) Vital Signs/I&O 08/31/22 17:20 Temp 36.2 Pulse 88 Resp 16 B/P (MAP) 139/63 (88) Pulse Ox 98 O2 Delivery Room Air Progress Progress Note : Progress Note 71-year-old female with above history coming in due to right shoulder pain after her fell on her shoulder on accident. ABCs were intact and vitals were stable on presentation. Physical exam with some pain with range of motion but no deformity and she is neurovascularly intact. X-ray of the right shoulder ordered and interpreted by me showing no fracture or dislocation. Likely soft tissue injury at this point. Very low risk for head injury or neck injury given the mechanism as well as low risk not having any symptoms. Because of this, CT head and cervical spine were not ordered. She was given Tylenol here for pain control. I believe she is stable for discharge with outpatient follow-up. She was sent home with strict return precautions. Diagnostic Imaging Diagonstic Imaging: Xray (right shoulder) Departure Impression Primary Impression: Right shoulder pain Qualified Codes: M25.511 - Pain in right shoulder Disposition: HOME, SELF-CARE Condition: Stable Departure-Patient Inst. Decision time for Depature: 18:05 Referrals: ANG QUIROS (PCP/Family) Primary Care Physician Patient Instructions: Shoulder Pain ED Add. Discharge Instructions: Fortunately we are not seeing anything broken or dislocated in the area where you are having discomfort. Take Tylenol as needed for pain and gently range your shoulder with movements. Follow-up with an orthopedist if you are not feeling better in the next 1 to 2 weeks. MARIA DEL ROSARIO DEXTER MD Aug 31, 2022 17:34
[2022-08-31] MEDS ORDERED: ACETAMINOPHEN 500 MG TAB (TYLENOL) PO ONE (17:45)
--- NOTE | 2022-08-31 18:05 | Diagnostic Imaging Report ---
CLINICAL HISTORY: Fall. Right shoulder pain. COMPARISON: None. TECHNIQUE: 3 views of the right shoulder. FINDINGS: There is no acute fracture or dislocation of the right shoulder. Alignment is anatomic. The imaged joint spaces are preserved. No focal osseous lesion. The right chest is clear. IMPRESSION: No acute fracture or dislocation of the right shoulder. Dictated by: Dictated on workstation # [id number]
[2022-08-31 18:29] VITALS: BP 139/63
== END 2022-08-31 18:29 | disposition home or self-care (01) ==
LOC: EDUNIT# 17:15 → ER FS 17:18
DX: M25.511 Pain in right shoulder (principal); W18.30XA Fall on same level, unspecified, initial encounter
CPT/HCPCS: 73030

== ENCOUNTER 2023-03-14 00:11 | Emergency (ER) | payer MEDICARE ==
[~2023-03-14] VITALS: Ht 165.1 cm; Wt 52.5 kg
[2023-03-14 00:30] LABS: BILIRUBIN,URINE NEGATIVE (NEGATIVE); CLARITY,URINE TURBID; COLOR,URINE YELLOW; GLUCOSE, URINE (UA) NEGATIVE (NEGATIVE); KETONES,URINE NEGATIVE (NEGATIVE); LEUKOCYTE ESTERASE ,URINE 3+ (NEGATIVE); NITRITE,URINE NEGATIVE (NEGATIVE); PROTEIN,URINE 1+ (NEGATIVE)
[2023-03-14] MEDS ORDERED: ONDANSETRON INJECTION 4 MG/2 ML (SDV) IVP STA (00:35)
[2023-03-14] MEDS ORDERED: PHENAZOPYRIDINE 100 MG TABLET PO STA (00:35)
[2023-03-14] MEDS ORDERED: NS IV 1000 ML 1,000 ML IV STA (00:35)
[2023-03-14 00:40] LABS: BACTERIA,URINE LARGE /HPF; RBC,URINE 50-100 /HPF; WBC,URINE TNTC /HPF
[2023-03-14 00:41] LABS: RENAL EPITHELIAL CELLS,URINE RARE /HPF
--- NOTE | 2023-03-14 00:41 | ED GU-Female ---
General Chief Complaint: - Reproductive Stated Complaint: UTI|PAIN Source: patient History of Present Illness Date Seen by Provider: Mar 14, 2023 Time Seen by Provider: 00:15 Initial Comments 72-year-old female presenting with complaints of suprapubic pain and right kidney pain. She has also been having nausea and vomiting since 7 AM. She had tried to get in with [facility] and states that they never called her back. She denies any diarrhea. She has had some chills but no fever. She states that she has not been able to keep anything down all day. She was going to go to the [facility] clinic on but decided that she could not wait any longer to be seen. Timing/Duration: constant Severity/Quality: severe Location: suprapubic Radiation: suprapubic Activities at Onset: none Prior Genitourinary Problems: similar symptoms Associated Symptoms: No diaphoresis, No dysuria, No loss of bladder control, No lower back pain, No lumps, No mass; nausea/vomiting Allergies and Home Medications Allergies Coded Allergies: Shellfish (Unverified Allergy, Unknown, SWELLING, RASH, 05/17/20) codeine (Unverified Allergy, Unknown, SEIZURE, 05/17/20) iodine (Unverified Allergy, Unknown, SWELLING, SOB, 05/17/20) meperidine (Unverified Allergy, Unknown, HALLUCINATION, 05/17/20) strawberry (Unverified Allergy, Unknown, RASH, SWELLING, 05/17/20) Patient Home Medication List Home Medication List Reviewed: Yes Aspirin (Aspirin Ec 81 Mg) 81 Mg Tabec, 81 MG PO DAILY, (Reported) Entered as Reported by: JASPER TUCKER on 05/14/11 1352 Last Action: Last Taken Edited Cephalexin (Cephalexin) 500 Mg Capsule, 500 MG PO TID Prescribed by: TATO MCKINNON on 03/14/23 0115 Levothyroxine Sodium (Levothyroxine Sodium) 88 Mcg Tablet, 88 MCG PO DAILY, (Reported) Entered as Reported by: MATT STEWART on 03/14/23 0237 Last Action: New Order Metoprolol Succinate (Metoprolol Succinate) 50 Mg Tab.sr.24h, 100 MG PO DAILY, (Reported) Entered as Reported by: JASPER TUCKER on 05/14/11 1344 Last Action: Last Taken Edited Nifedipine (Nifediac Cc) 90 Mg Tablet.sa, 60 MG PO DAILY, (Reported) Entered as Reported by: JASPER TUCKER on 05/14/111343 Last Action: Last Taken Edited Ondansetron (Ondansetron Odt) 4 Mg Tab.rapdis, 4 MG PO Q6H PRN for NAUSEA/VOMITING Prescribed by: TATO MCKINNON on 03/14/23 0115 Phenazopyridine HCl (Azo Urinary Pain Relief) 99.5 Mg Tablet, 99.5 MG PO TID Prescribed by: TATO MCKINNON on 03/14/23 0244 Discontinued Medications Levothyroxine Sodium (Levothyroxine 100 Mcg Tab) 100 Mcg Tablet, 100 MG PO DAILY, (Reported) Discontinued Reason: Referral/FU Appt-Addtl Entered as Reported by: JASPER TUCKER on 05/14/111343 Last Action: Discontinued Review of Systems Review of Systems Constitutional: chills; No fever EENTM: no symptoms reported Respiratory: no symptoms reported Cardiovascular: no symptoms reported Gastrointestinal: see HPI Genitourinary: see HPI Musculoskeletal: no symptoms reported Skin: no symptoms reported Psychiatric/Neurological: No Symptoms Reported Past Dyiafpk-Vpsldy-Utflcx Hx Patient Social History Tobacco Use?: No Immunizations Up To Date First/Initial COVID19 Vaccinat: YES Second COVID19 Vaccination Ilir: YES Third COVID19 Vaccination Date: YES Seasonal Allergies Seasonal Allergies: No Past Medical History Surgery/Hospitalization HX: Carpal tunnel surgery, lumpectomy on the right breast, cataract, right breast cancer, chronic kidney failure, hypertension Appendectomy Reproductive Disorders: No Physical Exam Vital Signs Vital Signs - First Documented 03/14/23 00:17 Temp 36.1 Pulse 61 Resp 16 B/P (MAP) 136/52 (80) Pulse Ox 100 O2 Delivery Room Air Capillary Refill : Height, Weight, BMI Height: '" Weight: 154lbs. oz. [id number]; BMI Method: General Appearance: mild distress, other (Appears chronically ill) HEENT: PERRL/EOMI Cardiovascular: normal peripheral pulses, regular rate, rhythm Respiratory: chest non-tender, lungs clear, normal breath sounds, no respiratory distress, no accessory muscle use Gastrointestinal: normal bowel sounds, soft, no pulsatile mass; No distended, No guarding, No rebound; tenderness (Suprapubic) Back: CVA tenderness (R) Extremities: normal range of motion, non-tender, normal capillary refill Neurologic/Psychiatric: alert, oriented x 3 Skin: normal color, warm/dry Progress/Results/Core Measures Suspected Sepsis SIRS Temperature: Pulse: Respiratory Rate: Laboratory Tests 03/14/23 00:45: White Blood Count 16.0H Blood Pressure / Mean: Laboratory Tests 03/14/23 00:45: Creatinine 3.57H, Platelet Count 326, Total Bilirubin 0.6 Results/Orders Lab Results Laboratory Tests Test 03/14/23 00:20 03/14/23 00:45 Range/Units Urine Color YELLOW Urine Clarity TURBID Urine pH 6.0 5-9 Urine Specific [place] 1.015 L 1.016-1.022 Urine Protein 1+ H NEGATIVE Urine Glucose (UA) NEGATIVE NEGATIVE Urine Ketones NEGATIVE NEGATIVE Urine Nitrite NEGATIVE NEGATIVE Urine Bilirubin NEGATIVE NEGATIVE Urine Urobilinogen 0.2 < = 1.0 MG/DL Urine Leukocyte Esterase 3+ H NEGATIVE Urine RBC (Auto) 3+ H NEGATIVE Urine RBC 50-100 H /HPF Urine WBC TNTC H /HPF Urine Squamous Epithelial Cells 2-5 /HPF Urine Renal Epithelial Cells RARE /HPF Urine Crystals NONE /LPF Urine Bacteria LARGE H /HPF Urine Casts NONE /LPF Urine Mucus NEGATIVE /LPF Urine Culture Indicated YES White Blood Count 16.0 H 4.3-11.0 10^3/uL Red Blood Count 3.55 L 3.80-5.11 10^6/uL Hemoglobin 10.1 L 11.5-16.0 g/dL Hematocrit 30 L 35-52 % Mean Corpuscular Volume 84 80-99 fL Mean Corpuscular Hemoglobin 29 25-34 pg Mean Corpuscular Hemoglobin Concent 34 32-36 g/dL Red Cell Distribution Width 12.1 10.0-14.5 % Platelet Count 326 130-400 10^3/uL Mean Platelet Volume 9.1 9.0-12.2 fL Immature Granulocyte % (Auto) 1 % Neutrophils (%) (Auto) 92 H 42-75 % Lymphocytes (%) (Auto) 4 L 12-44 % Monocytes (%) (Auto) 4 0-12 % Eosinophils (%) (Auto) 0 0-10 % Basophils (%) (Auto) 0 0-10 % Neutrophils # (Auto) 14.7 H 1.8-7.8 10^3/uL Lymphocytes # (Auto) 0.6 L 1.0-4.0 10^3/uL Monocytes # (Auto) 0.6 0.0-1.0 10^3/uL Eosinophils # (Auto) 0.0 0.0-0.3 10^3/uL Basophils # (Auto) 0.1 0.0-0.1 10^3/uL Immature Granulocyte # (Auto) 0.1 0.0-0.1 10^3/uL Neutrophils % (Manual) 85 % Lymphocytes % (Manual) 5 % Monocytes % (Manual) 3 % Basophils % (Manual) 1 % Band Neutrophils 6 % Toxic Granulation 2+ Platelet Estimate NORMAL Blood Morphology Comment NORMAL Sodium Level 127 L 135-145 MMOL/L Potassium Level 4.6 3.6-5.0 MMOL/L Chloride Level 94 L 98-107 MMOL/L Carbon Dioxide Level 17 L 21-32 MMOL/L Anion Gap 16 H 5-14 MMOL/L Blood Urea Nitrogen 50 H 7-18 MG/DL Creatinine 3.57 H 0.60-1.30 MG/DL Estimat Glomerular Filtration Rate 13 BUN/Creatinine Ratio 14 Glucose Level 186 H 70-105 MG/DL Calcium Level 9.2 8.5-10.1 MG/DL Corrected Calcium 9.4 8.5-10.1 MG/DL Total Bilirubin 0.6 0.1-1.0 MG/DL Aspartate Amino Transf (AST/SGOT) 11 5-34 U/L Alanine Aminotransferase (ALT/SGPT) 10 0-55 U/L Alkaline Phosphatase 68 40-136 U/L Total Protein 8.1 6.4-8.2 GM/DL Albumin 3.8 3.2-4.5 GM/DL Lipase 15 8-78 U/L My Orders Orders - TATO MCKINNON MD Ua Culture If Indicated (03/14/23 00:16) Comprehensive Metabolic Panel (03/14/23 00:35) Lipase (03/14/23 00:35) Ed Iv/Invasive Line Start (03/14/23 00:35) Cbc And Automated Diff (03/14/23 00:35) Ct Abdomen/Pelvis Wo (03/14/23 00:35) Ns Iv 1000 Ml (Ns Iv 1000 Ml) (03/14/23 00:35) Ondansetron Injection (Ondansetron Inj (03/14/23 00:35) Phenazopyridine Tablet (Phenazopyridine (03/14/23 00:35) Urine Culture (03/14/23 00:20) Ceftriaxone Iv/Im (Ceftriaxone Iv/Im) (03/14/23 00:56) Manual Differential (03/14/23 00:45) Rx-Ondansetron Po (Rx-Zofran Po) (03/14/23 02:41) Vital Signs/I&O 03/14/23 03/14/23 00:17 02:55 Temp 36.1 36.1 Pulse 61 62 Resp 16 16 B/P (MAP) 136/52 (80) 137/60 Pulse Ox 100 100 O2 Delivery Room Air Room Air Capillary Refill : Progress Note #1: Progress Note Differential diagnosis includes UTI, pyelonephritis, gastroenteritis, bowel obstruction, colitis, diverticulitis, renal colic. Establish peripheral IV access and send labs for complete blood count, comprehensive metabolic profile, lipase. Urinalysis to look for UTI. Adminis ter normal saline 1 L IV fluid bolus for hydration as patient states that she has not kept anything down all day. Zofran 4 mg IV for nausea and vomiting. Pyridium 100 mg p.o. x1 to try and help with bladder spasms and pain. Progress Note #2: Progress Note Urinalysis did show signs of urinary tract infection with packed white blood cells and bacteria as well as leukocyte esterase. She does not have any urine cultures in the [facility] system. Will order Rocephin 1 g IV here in the ED since she has chronic kidney failure. This will be easier on her kidneys then some of the other antibiotics would be. Since she had recently taken Bactrim in the past having GI difficulties with that will consider cephalexin or a cephalosporin for discharge to home. Her white blood cell count was elevated to 16,000. She had some anemia of chronic disease with a hemoglobin of 10.1. 0124 comprehensive metabolic profile showed hyponatremia with a sodium of 127, normal potassium of 4.6, BUN elevated to 50, creatinine elevated to 3.57. This gives her a GFR of 13. Her glucose was slightly elevated at 186. She had a normal lipase of 15. Patient reports that she was feeling better as the IV fluids infused. Awaiting CT scan and see how she does with Rocephin antibiotic. Most recent labs for [facility] were from 2020 and at that time her Cr was just over 1.5. 0240 on my personal interpretation and reviewed with the CT scan of the abdomen and pelvis without IV contrast looks like she had some stranding around bilate ral kidneys and signs of atrophy. There were some small renal stones but I did not appreciate any definite stones in the ureter. Did not appreciate bowel obstruction. Rather than make the patient wait for hours to get the official CT result will discharge her to home since she was feeling better and had tolerated oral intake. Will encourage her to follow-up with nephrology for her chronic kidney disease as well as following up with primary care and counseled on medication for the UTI. Encouraged to try and keep drinking plenty of fluids as her BUN and creatinine may be elevated tonight partially due to dehydration since she states that she has not kept anything down all day. If her symptoms continue to worsen in the nausea medicine antibiotics are not helping encouraged to return or follow-up for repeat evaluation. Stressed importance of taking the full course of the antibiotic. Counseled that if she did not tolerate the 3 times a day Keflex she could at least take twice a day to make sure that she was getting some treatment. Advised that we would call if she needed to change the antibiotic based off of the culture and sensitivity results. If the CT scan shows anything acute or concerning will call the patient in the morning to let them know. Send with a Zofran take-home pack of 4 mg ODT every 6 hours prn Nausea and vomiting. Sent prescription for cephalexin 500 mg p.o. 3 times daily x5 days for the UTI. Also sent Zofran ODT 4 mg 1 every 6 hours as needed nausea and vomiting. And a third prescription for Pyridium 99.5 mg p.o. 3 times daily x2 days for bladder pain and spasms. Diagnostic Imaging Diagonstic Imaging: CT Plain Films/CT/US/NM/MRI: abdomen, pelvis Comments CT abdomen and pelvis without contrast impression Mild right-sided hydronephrosis and hydroureter noted to the level of the urinary bladder. No ureteral stone or bladder calculus is present. The findings may reflect a recently passed calculus or a noncalcified obstructing ureteral lesion/stricture. Further evaluation is recommended. Urinary bladder is slightly thick-walled which may reflect cystitis in the correct clinical setting. Read by radiologist Dr. Arnold Diaz MD at 0 [phone] and faxed to [facility] at 0 [phone]. Reviewed: Reviewed [facility] Study, Reviewed by Me Departure Impression Primary Impression: Acute cystitis with hematuria Additional Impressions: Nausea and vomiting in adult Chronic renal disease, stage 5, glomerular filtration rate (GFR) less than or equal to 15 mL/min/1.73 square meter Disposition: 01 HOME, SELF-CARE Condition: Improved Departure-Patient Inst. Decision time for Depature: 02:43 Referrals: SUZAN GATES APRN (PCP/Family) Primary Care Physician Patient Instructions: Nausea and Vomiting, Adult ED, Urinary Tract Infection, Adult ED, Chronic Kidney Disease (DC), Medicines for chronic kidney disease Add. Discharge Instructions: Try to stay well-hydrated and keep sipping on fluids. Take the full course of antibiotics to help treat for urinary tract infection. If you are not tolerating the 3 times a day dose try taking it at least at morning and night or twice a day and you would need at least a 5-day course. If the urine culture shows that you need a different antibiotic you will be contacted in 2 or 3 days and advised of the new medication been sent to the pharmacy. Make sure to follow-up with your primary care provider as well as trying to get in with the kidney specialist in [place]. All discharge instructions reviewed with patient and/or family. Voiced understanding. Scripts Phenazopyridine HCl (Azo Urinary Pain Relief) 99.5 Mg Tablet 99.5 MG PO TID for bladder spasm/pain for 2 Days, #6 TAB 0 Refills Prov: TATO MCKINNON MD 03/14/23 Ondansetron (Ondansetron Odt) 4 Mg Tab.rapdis 4 MG PO Q6H PRN for NAUSEA/VOMITING for 3 Days, #12 TAB 0 Refills Prov: TATO MCKINNON MD 03/14/23 Cephalexin (Cephalexin) 500 Mg Capsule 500 MG PO TID for UTI for 5 Days, #15 CAP 0 Refills Prov: TATO MCKINNON MD 03/14/23 ATTO MCKINNON MD Mar 14, 2023 00:41
[2023-03-14 00:51] LABS: BASOPHILS # (AUTO) 0.1 10^3/uL (0.0-0.1); BASOPHILS % (AUTO) 0 % (0-10); EOSINOPHILS % (AUTO) 0 % (0-10); HEMATOCRIT 30 % (35-52); HEMOGLOBIN 10.1 g/dL (11.5-16.0); LYMPHOCYTES # (AUTO) 0.6 10^3/uL (1.0-4.0); LYMPHOCYTES % (AUTO) 4 % (12-44); MEAN CORPUSCULAR HEMOGLOBIN 29 pg (25-34); MEAN CORPUSCULAR HGB CONC 34 g/dL (32-36); MEAN CORPUSCULAR VOLUME 84 fL (80-99); MEAN PLATELET VOLUME 9.1 fL (9.0-12.2); MONOCYTES # (AUTO) 0.6 10^3/uL (0.0-1.0); MONOCYTES % (AUTO) 4 % (0-12); NEUTROPHILS # (AUTO) 14.7 10^3/uL (1.8-7.8); NEUTROPHILS % (AUTO) 92 % (42-75); PLATELET COUNT 326 10^3/uL (130-400)
[2023-03-14] MEDS ORDERED: cefTRIAXone IV/IM 1,000 MG in NS (IVPB) 50 ML 50 ML IV STA (00:56)
[2023-03-14 01:12] LABS: POTASSIUM 4.6 MMOL/L (3.6-5.0)
[2023-03-14] MEDS ORDERED: ONDA4TAB11 PO (01:15)
[2023-03-14] MEDS ORDERED: CEPH500C PO (01:15)
[2023-03-14 01:17] LABS: BAND NEUTROPHILS 6 %; BASOPHILS % (MANUAL) 1 %; LYMPHOCYTES % (MANUAL) 5 %; MONOCYTES % (MANUAL) 3 %; NEUTROPHILS % (MANUAL) 85 %; PLATELET ESTIMATE NORMAL
[2023-03-14 01:18] LABS: RBC MORPH NORMAL; TOXIC GRANULATION/VACUOLAZATIO 2+
[2023-03-14 01:21] LABS: BILIRUBIN,TOTAL 0.6 MG/DL (0.1-1.0); CALCIUM 9.2 MG/DL (8.5-10.1); CREATININE SERUM 3.57 MG/DL (0.60-1.30)
[2023-03-14 01:22] LABS: ALBUMIN 3.8 GM/DL (3.2-4.5); TOTAL PROTEIN 8.1 GM/DL (6.4-8.2)
[2023-03-14] MEDS ORDERED: LEVO88TA54 PO (02:37)
[2023-03-14] MEDS ORDERED: RX-ONDANSETRON 4 MG ODT (ZOFRAN) PPK #4 PO STA (02:41)
[2023-03-14] MEDS ORDERED: PHEN99.5 PO (02:44)
[2023-03-14 02:55] VITALS: BP 137/60
--- NOTE | 2023-03-14 08:23 | Diagnostic Imaging Report ---
PROCEDURE: CT abdomen and pelvis without contrast. TECHNIQUE: Multiple contiguous axial images were obtained through the abdomen and pelvis without the use of intravenous contrast. Auto Exposure Controls were utilized during the CT exam to meet ALARA standards for radiation dose reduction. INDICATION: Right CVA, suprapubic pain, nausea and vomiting CT abdomen pelvis without contrast 03/14/2023 FINDINGS: There is linear scar or atelectasis in the visualized lung bases with mild bronchiectasis questioned as well. No acute abnormality. Very small pericardial effusion suspected. There is a small hiatal hernia. The non-opacified liver and spleen unremarkable. Pancreas unremarkable. Gallbladder unremarkable. There is likely bilateral hyperplasia of the adrenal glands. There is a mild right hydroureteronephrosis with very early developing left hydronephrosis suspected as well. Fat stranding is seen about both kidneys. Fat stranding tracks along both flanks bilaterally right greater than left. There are no distal ureteral stones on either side. There is mild wall thickening along the periphery of the urinary bladder more pronounced posteriorly and right paracentrally. Underlying mass causing obstruction or partial obstruction of the distal ureter or ureters not excluded. There is minimal free fluid in pelvis. Nonspecific adenopathy seen throughout the upper abdomen and retroperitoneum with areas of adjacent mesenteric fat stranding present. Atherosclerotic disease noted. There is no free air. There is no acute osseous abnormality. Fatty lesion in the lateral border of the gluteus medius muscle on the left likely a lipoma. IMPRESSION: 1. Diffuse fat stranding left kidneys right worse than left with bilateral hydroureteronephrosis right greater than left. No obstructive stones seen. These findings could be due to bilateral pyelonephritis. Partial obstructive process perhaps due to a mass either in ureter or urinary bladder also in the differential. Urological consultation recommended especially in the setting diffuse adenopathy with metastatic process not excluded. Wall thickening of the urinary bladder also present direct visualization may be warranted if cystitis not present. 2. Adenopathy as described above. Metastatic process not excluded. This is not mentioned by [facility] report but nonemergent. 3. Other incidental findings as noted above. Report was faxed and called to nurse Cheryl by alex at 8:25am. Dictated by: Dictated on workstation # [id number]
== END 2023-03-14 02:55 | disposition home or self-care (01) ==
LOC: EDUNIT# 00:11 → ER FS 00:13
DX: N30.01 Acute cystitis with hematuria (principal); I12.0 Hypertensive chronic kidney disease with stage 5 chronic kidney disease or end stage renal disease; N18.5 Chronic kidney disease, stage 5
CPT/HCPCS: 36415; 74176; 80053; 81000; 83690; 85007; 85027; 87088; 87106; 87186; 96365; 96375